=== PATIENT | male | born 1990 | race African-American/Black ===

== ENCOUNTER 2017-12-10 08:35 | Emergency (ER) | payer OTHER ==
[~2017-12-10] VITALS: Ht 177.8 cm; Wt 90.0 kg
[2017-12-10 08:38] VITALS: BP 136/82; PULSE 95; RESP 16; TEMP 98.1; O2SAT 100
--- NOTE | 2017-12-10 09:33 | PD ---
HPI Chief Complaint: Medical Clearance Time Seen by Provider: 09:05 Travel History International Travel<30 days: No Contact w/Intl Traveler<30days: No Traveled to known affect area: No History of Present Illness HPI 27-year-old Afro-[place] male recently arrived here from [place], and apparently currently homeless, presents the emergency department with suicidal ideation. He feels unsafe with himself. Feels threatened by any others, but does not feel comfortable in his new Environment. Patient denies any medical problems. He denies hallucinations. He denies acute medical issues. He takes no medications. He has no known drug allergies. [facility] Past Medical History Medical History: Denies Significant Hx Tetanus Vaccination: Unknown Influenza Vaccination: No Past Surgical History Surgical History: No Previous Surgery Social History Alcohol Use: Yes Tobacco Use: Yes Substance Use: No Allergies-Medications (Allergen,Severity, Reaction): Coded Allergies: No Known Allergies (Unverified , 12/10/17) Reported Meds & Prescriptions Reported Meds & Active Scripts Active No Active Prescriptions or Reported Medications Review of Systems Except as stated in HPI: all other systems reviewed are Neg General / Constitutional: No: Fever Eyes: No: Visual changes HENT: No: Headaches Cardiovascular: No: Chest Pain or Discomfort Respiratory: No: Shortness of Breath Gastrointestinal: No: Abdominal Pain Genitourinary: No: Dysuria Musculoskeletal: No: Pain Skin: No Rash Neurologic: No: Weakness Psychiatric: No: Depression Endocrine: No: Polydipsia Hematologic/Lymphatic: No: Easy Bruising Physical Exam Narrative GENERAL: Patient appears in no obvious distress. He is somewhat disheveled due to his homeless state. SKIN: Warm and dry. Normal Color. Normal turgor. HEAD: Atraumatic. Normocephalic. EYES: Pupils equal and round. No scleral icterus. No injection or drainage. ENT: No nasal bleeding or discharge. Mucous membranes pink and moist. [place] clear. Airway is patent. NECK: Trachea midline. Neck is supple and nontender. CARDIOVASCULAR: Regular rate and rhythm. RESPIRATORY: No accessory muscle use. Clear to auscultation. Breath sounds equal bilaterally. MUSCULOSKELETAL: Extremities without clubbing, cyanosis, or edema. No obvious deformities. NEUROLOGICAL: Awake and alert. No obvious cranial nerve deficits. Motor grossly within normal limits. Five out of 5 muscle strength in the arms and legs. Normal speech. PSYCHIATRIC: Appropriate mood and affect; insight and judgment normal. Data Data Last Documented VS Vital Signs Date Time Temp Pulse Resp B/P (MAP) Pulse Ox O2 Delivery O2 Flow Rate FiO2 12/10/17 09:00 17 12/10/17 08:38 98.1 95 136/82 (100) 100 Room Air Orders Orders Complete Blood Count With Diff (12/10/17 09:04) Comprehensive Metabolic Panel (12/10/17 09:04) Thyroid Stimulating Hormone (12/10/17 09:04) Psych Screen (12/10/17 09:04) Drug Screen, Random Urine (12/10/17 09:04) Alcohol (Ethanol) (12/10/17 09:04) Diet Regular Basic (12/10/17 Breakfast) Labs Laboratory Tests Test 12/10/17 09:33 12/10/17 09:35 Urine Opiates Screen NEG Urine Barbiturates Screen NEG Urine Amphetamines Screen NEG Urine Benzodiazepines Screen NEG Urine Cocaine Screen NEG Urine Cannabinoids Screen NEG White Blood Count 11.9 TH/MM3 Red Blood Count 4.48 MIL/MM3 Hemoglobin 14.3 GM/DL Hematocrit 41.7 % Mean Corpuscular Volume 93.0 FL Mean Corpuscular Hemoglobin 32.0 PG Mean Corpuscular Hemoglobin Concent 34.4 % Red Cell Distribution Width 13.1 % Platelet Count 307 TH/MM3 Mean Platelet Volume 8.3 FL Neutrophils (%) (Auto) 80.9 % Lymphocytes (%) (Auto) 10.7 % Monocytes (%) (Auto) 7.0 % Eosinophils (%) (Auto) 1.0 % Basophils (%) (Auto) 0.4 % Neutrophils # (Auto) 9.6 TH/MM3 Lymphocytes # (Auto) 1.3 TH/MM3 Monocytes # (Auto) 0.8 TH/MM3 Eosinophils # (Auto) 0.1 TH/MM3 Basophils # (Auto) 0.0 TH/MM3 CBC Comment DIFF FINAL Differential Comment Blood Urea Nitrogen 14 MG/DL Creatinine 1.08 MG/DL Random Glucose 87 MG/DL Total Protein 7.8 GM/DL Albumin 4.1 GM/DL Calcium Level 9.2 MG/DL Alkaline Phosphatase 69 U/L Aspartate Amino Transf (AST/SGOT) 24 U/L Alanine Aminotransferase (ALT/SGPT) 25 U/L Total Bilirubin 0.8 MG/DL Sodium Level 137 MEQ/L Potassium Level 3.7 MEQ/L Chloride Level 104 MEQ/L Carbon Dioxide Level 26.5 MEQ/L Anion Gap 7 MEQ/L Estimat Glomerular Filtration Rate 99 ML/MIN Thyroid Stimulating Hormone 3rd Gen 0.855 uIU/ML Ethyl Alcohol Level LESS THAN 3 MG/DL MDM Medical Decision Making Medical Screen Exam Complete: Yes Emergency Medical Condition: Yes Differential Diagnosis Suicidal ideation. Depression. Anxiety. Narrative Course Psychiatric labs ordered per protocol. Psych screen is ordered. Patient is medically cleared for psychiatric evaluation. Patient is currently voluntary. Scripts No Active Prescriptions or Reported Meds Condition: Stable Javad Perkins Dec 10, 2017 09:33
[2017-12-10 10:03] LABS: AUTOMATED NEUTROPHIL # 9.6 TH/MM3 (1.8-7.7); BASOPHIL % 0.4 % (0.0-2.0); EOSINOPHIL # 0.1 TH/MM3 (0-0.4); HEMATOCRIT 41.7 % (39.0-51.0); HEMOGLOBIN 14.3 GM/DL (13.0-17.0); LYMPH % 10.7 % (9.0-44.0); LYMPHOCYTE # 1.3 TH/MM3 (1.0-4.8); MEAN CORPUSCULAR HGB CONC 34.4 % (32.0-36.0); MEAN PLATELET VOLUME 8.3 FL (7.0-11.0); MONOCYTE # 0.8 TH/MM3 (0-0.9); NEUT % 80.9 % (16.0-70.0); PLATELET COUNT 307 TH/MM3 (150-450); RED BLOOD COUNT 4.48 MIL/MM3 (4.50-5.90); RED CELL DISTRIBUTION WIDTH 13.1 % (11.6-17.2); WHITE BLOOD COUNT 11.9 TH/MM3 (4.0-11.0)
[2017-12-10 10:05] LABS: ALBUMIN 4.1 GM/DL (3.4-5.0); AST (GOT) 24 U/L (15-37); BICARBONATE 26.5 MEQ/L (21.0-32.0); BLOOD UREA NITROGEN 14 MG/DL (7-18); CALCIUM 9.2 MG/DL (8.5-10.1); CHLORIDE 104 MEQ/L (98-107); CREATININE 1.08 MG/DL (0.60-1.30); GLOMERULAR FILTRATION RATE 99 ML/MIN (>89); GLUCOSE,RANDOM 87 MG/DL (74-106); SODIUM (NA) 137 MEQ/L (136-145)
[2017-12-10 10:15] LABS: ALKALINE PHOSPHATASE 69 U/L (45-117); ALT (GPT) 25 U/L (12-78); TOTAL BILIRUBIN ADULT 0.8 MG/DL (0.2-1.0); TOTAL PROTEIN 7.8 GM/DL (6.4-8.2)
[2017-12-10 13:26] VITALS: BP 150/74; PULSE 89; RESP 15; O2SAT 100
[2017-12-10 18:00] VITALS: BP 146/89; PULSE 92; RESP 16; O2SAT 100
[2017-12-10 19:00] VITALS: BP 138/84; PULSE 89; RESP 16; O2SAT 100
--- NOTE | 2017-12-11 08:58 | PD ---
Physical Exam Time Seen by Provider: 08:56 HÉCTOR Urbina has evaluated the patient, lifted the Burdick act and with the patient for discharge. Data Data Last Documented VS Vital Signs Date Time Temp Pulse Resp B/P (MAP) Pulse Ox O2 Delivery O2 Flow Rate FiO2 12/10/17 19:00 89 16 138/84 (102) 100 Room Air 12/10/17 08:38 98.1 Orders Orders Complete Blood Count With Diff (12/10/17 09:04) Comprehensive Metabolic Panel (12/10/17 09:04) Thyroid Stimulating Hormone (12/10/17 09:04) Psych Screen (12/10/17 09:04) Drug Screen, Random Urine (12/10/17 09:04) Alcohol (Ethanol) (12/10/17 09:04) Diet Regular Basic (12/10/17 Breakfast) Diet Regular Basic (12/11/17 Breakfast) Labs Laboratory Tests Test 12/10/17 09:33 12/10/17 09:35 Urine Opiates Screen NEG Urine Barbiturates Screen NEG Urine Amphetamines Screen NEG Urine Benzodiazepines Screen NEG Urine Cocaine Screen NEG Urine Cannabinoids Screen NEG White Blood Count 11.9 TH/MM3 Red Blood Count 4.48 MIL/MM3 Hemoglobin 14.3 GM/DL Hematocrit 41.7 % Mean Corpuscular Volume 93.0 FL Mean Corpuscular Hemoglobin 32.0 PG Mean Corpuscular Hemoglobin Concent 34.4 % Red Cell Distribution Width 13.1 % Platelet Count 307 TH/MM3 Mean Platelet Volume 8.3 FL Neutrophils (%) (Auto) 80.9 % Lymphocytes (%) (Auto) 10.7 % Monocytes (%) (Auto) 7.0 % Eosinophils (%) (Auto) 1.0 % Basophils (%) (Auto) 0.4 % Neutrophils # (Auto) 9.6 TH/MM3 Lymphocytes # (Auto) 1.3 TH/MM3 Monocytes # (Auto) 0.8 TH/MM3 Eosinophils # (Auto) 0.1 TH/MM3 Basophils # (Auto) 0.0 TH/MM3 CBC Comment DIFF FINAL Differential Comment Blood Urea Nitrogen 14 MG/DL Creatinine 1.08 MG/DL Random Glucose 87 MG/DL Total Protein 7.8 GM/DL Albumin 4.1 GM/DL Calcium Level 9.2 MG/DL Alkaline Phosphatase 69 U/L Aspartate Amino Transf (AST/SGOT) 24 U/L Alanine Aminotransferase (ALT/SGPT) 25 U/L Total Bilirubin 0.8 MG/DL Sodium Level 137 MEQ/L Potassium Level 3.7 MEQ/L Chloride Level 104 MEQ/L Carbon Dioxide Level 26.5 MEQ/L Anion Gap 7 MEQ/L Estimat Glomerular Filtration Rate 99 ML/MIN Thyroid Stimulating Hormone 3rd Gen 0.855 uIU/ML Ethyl Alcohol Level LESS THAN 3 MG/DL MDM Supervised Visit with MINAL: No Narrative Course HÉCTOR Avitia has evaluated the patient, lifted the Burdick act and with the patient for discharge. Patient contracts safety. Denies suicidal or homicidal ideations. Patient will be provided community resource packet to [facility] for follow-up. Has friends and family for support. Patient was medically cleared by alternate provider prior to psych screening. Patient has been evaluated by psychiatry and and is now cleared for discharge. Diagnosis Primary Impression: Malingering Referrals: [facility] (Out patient) [facility] Primary Care Physician Psychiatrist [facility] Additional Instruction: Contract safety to your self and others Follow-up with psychiatry Follow-up with primary care provider Follow-up with Cliff Kamara Return to the emergency department immediately with worsening of symptoms Med/Other Pt SpecificInfo: No Change to Meds, No Meds Exist/No RX given Scripts No Active Prescriptions or Reported Meds Disposition: 01 DISCHARGE HOME Condition: Stable Sara Campos Dec 11, 2017 08:58
--- NOTE | 2017-12-11 09:00 | PD ---
History of Present Illness Chief Complaint: Medical Clearance Time Seen by Provider: 08:30 Travel History International Travel<30 Days: No Contact w/Intl Traveler<30days: No Known affected area: No Legal Status Legal Status: Voluntary History of Present Illness: History of Present Illness 27-year-old Afro-[place] male with no previous psychiatric history who arrived here from [place] on the day that he presented to the ED, currently homeless, who presents to the emergency department with suicidal ideation. He reports to ED provider that he "feels unsafe with himself, feels threatened by others, and does not feel comfortable in his new environment." He apparently left [place] 2 days ago, left on a [employer] bus "trying to get away from family issues". He is vague about what these issues are but does state that he has a child who is due to arrive on December 28. He also tells us that he left without an ID and that he has not had an ID in the last 3 years, that he is out of money, and that he's trying to find a way to get back to [place]. The patient was monitored in J pod for extended period of time and presented no behavioral concerns and no suicidality. He slept well and ate well. Electronic medical record is reviewed. No previous contact with [facility]. Current toxicology is negative. The patient is seen with Max FINN. He is alert, oriented, disheveled male. He is calm and cooperative. Speech is clear, logical and goal-directed. He does not present any psychiatric symptomatology except to tell us that he does not feel unsafe in [facility] because people in [place] told him that this was an "unsafe city". The patient does not appear to be responding to internal stimuli and he does not report any hallucinations, delusions or paranoia. The patient is not suicidal or homicidal and wants help, more specifically would like financial help to get back to [place]. There is no objective clinical symptom of depression or anxiety. He is cognitively intact. [facility] Past Medical History Medical History: Denies Significant Hx Tetanus Vaccination: Unknown Influenza Vaccination: No Past Surgical History Surgical History: No Previous Surgery Psychiatric History Psychiatric History Hx Psychiatric Treatment: REPORTS THAT HE HAS NOT TAKEN PSYCH MEDS IN A LONG TIME. WAS HOSPITALIZED A TEEN FOR SUICIDAL THOUGHTS History of Inpatient Treatment: Yes (claims he was hospitalized as an adolescent) Guns or firearms in home: No Social History Single, male homeless who came to [place] one day ago from [place]. He is unemployed and receives Social Security. Hx Alcohol Use: Yes Hx Tobacco Use: Yes Hx Substance Use: No Hx of Substance Use Treatment: No Family Psychiatric History Negative Allergies-Medications (Allergen,Severity, Reaction): Coded Allergies: No Known Allergies (Unverified , 12/10/17) Reported Meds & Prescriptions Reported Meds & Active Scripts Active No Active Prescriptions or Reported Medications Review of Systems Psychiatric: DENIES: Anxiety, Confusion, Mood changes, Depression, Hallucinations, Agitation, Suicidal Ideation, Homicidal Ideation, Delusions Except as stated in HPI: all other systems reviewed are Neg Mental Status Examination Appearance: Disheveled Consciousness: Alert Orientation: x4 Motor Activity: Normal gait Speech: Unremarkable Language: Adequate Fund of Knowledge: Adequate Attention and Concentration: Adequate Memory: Unremarkable Mood: Appropriate Affect: Appropriate Thought Process & Associations: Intact, Logical, Goal directed Thought Content: Appropriate Hallucination Type: None Delusion Type: None Suicidal Ideation: No Suicidal Plan: No Suicidal Intention: No Homicidal Ideation: No Homicidal Plan: No Homicidal Intention: No Insight: Fair Judgment: Adequate MDM Medical Decision Making Medical Record Reviewed: Yes Assessment/Plan 27-year-old male with no reported psychiatric history who presents to the emergency department on a voluntary status. The patient arrived to [place] last night on a [employer] bus from [place]. He states that he came here to get away from family stress. He initially reported to the emergency department providers that he felt suicidal. He did not make any attempt to harm himself and he had no plan. The patient was monitored in secure environment for extended period of time and presented no behavioral concerns and no suicidality. The patient is cognitively intact upon evaluation. He is asking to get some help to get back to [place]. He is more specifically asking for financial help to get him back on the bus since he is out of money. He also reports that he doesn't have an ID and hasn't had one in 3 years and therefore cannot go to the homeless [facility]. The patient does not present any evidence of unstable mental illness as defined under the Burdick act. The patient appears to be malingering his symptoms in order to obtain chcf. He is provided resources for the community including the homeless coalition. This patient does not meet criteria for inpatient psychiatric treatment. He is psychiatrically clear for discharge. Orders Orders Complete Blood Count With Diff (12/10/17 09:04) Comprehensive Metabolic Panel (12/10/17 09:04) Thyroid Stimulating Hormone (12/10/17 09:04) Psych Screen (12/10/17 09:04) Drug Screen, Random Urine (12/10/17 09:04) Alcohol (Ethanol) (12/10/17 09:04) Diet Regular Basic (12/10/17 Breakfast) Diet Regular Basic (12/11/17 Breakfast) Results Vital Signs Date Time Temp Pulse Resp B/P (MAP) Pulse Ox O2 Delivery O2 Flow Rate FiO2 12/10/17 19:00 89 16 138/84 (102) 100 Room Air 12/10/17 18:00 92 16 146/89 (108) 100 Room Air 12/10/17 13:26 89 15 150/74 (99) 100 Room Air 12/10/17 09:00 17 Laboratory Tests Test 12/10/17 09:33 12/10/17 09:35 Urine Opiates Screen NEG Urine Barbiturates Screen NEG Urine Amphetamines Screen NEG Urine Benzodiazepines Screen NEG Urine Cocaine Screen NEG Urine Cannabinoids Screen NEG White Blood Count 11.9 Red Blood Count 4.48 Hemoglobin 14.3 Hematocrit 41.7 Mean Corpuscular Volume 93.0 Mean Corpuscular Hemoglobin 32.0 Mean Corpuscular Hemoglobin Concent 34.4 Red Cell Distribution Width 13.1 Platelet Count 307 Mean Platelet Volume 8.3 Neutrophils (%) (Auto) 80.9 Lymphocytes (%) (Auto) 10.7 Monocytes (%) (Auto) 7.0 Eosinophils (%) (Auto) 1.0 Basophils (%) (Auto) 0.4 Neutrophils # (Auto) 9.6 Lymphocytes # (Auto) 1.3 Monocytes # (Auto) 0.8 Eosinophils # (Auto) 0.1 Basophils # (Auto) 0.0 CBC Comment DIFF FINAL Differential Comment Blood Urea Nitrogen 14 Creatinine 1.08 Random Glucose 87 Total Protein 7.8 Albumin 4.1 Calcium Level 9.2 Alkaline Phosphatase 69 Aspartate Amino Transf (AST/SGOT) 24 Alanine Aminotransferase (ALT/SGPT) 25 Total Bilirubin 0.8 Sodium Level 137 Potassium Level 3.7 Chloride Level 104 Carbon Dioxide Level 26.5 Anion Gap 7 Estimat Glomerular Filtration Rate 99 Thyroid Stimulating Hormone 3rd Gen 0.855 Ethyl Alcohol Level LESS THAN 3 Diagnosis Primary Impression: Malingering Psychiatrically Cleared: Yes Med/ Other Pt Specific Info: No Meds Exist/No RX given Prescriptions No Active Prescriptions or Reported Meds Disposition: 01 DISCHARGE HOME Condition: Stable Adore Montgomery Dec 11, 2017 09:00
== END 2017-12-11 09:46 | disposition home or self-care (01) ==
LOC: NEPD 08:35 → NEPJ 12-11 09:46
DX: Z76.5 Malingerer [conscious simulation] (principal); Z72.0 Tobacco use; Z59.0 Homelessness
CPT/HCPCS: 80053; 80307; 84443; 85025; 99283